=== PATIENT | female | born 1975 | race Two or more races ===

== ENCOUNTER 2019-10-13 18:22 | Emergency (ER) | payer MEDICAID ==
[~2019-10-13] VITALS: Ht 162.6 cm; Wt 60.0 kg
[2019-10-13 21:51] LABS: BASOPHILS % 1.1 % (0.0-2.0); HEMATOCRIT. 37.1 % (36.0-48.0); HEMOGLOBIN. 12.6 g/dL (12.0-16.0); LYMPHOCYTES % 44.5 % (20.0-50.0); MEAN CORPUSCULAR VOLUME 88.7 fL (81.0-99.0); MONOCYTES % 4.4 % (2.0-8.0); PLATELET 319 x1000/uL (130-400); RED BLOOD CELL COUNT 4.18 mill/uL (4.2-5.4); RED CELL DISTRIBUTION WIDTH 13.7 % (11.6-14.6)
[2019-10-13 21:56] LABS: CHLORIDE 106 mEq/L (98-107)
[2019-10-13 22:38] VITALS: BP 137/84
== END 2019-10-13 22:40 | disposition home or self-care (01) ==
LOC: ER 18:22
DX: S20.211A Contusion of right front wall of thorax, initial encounter (principal); N92.0 Excessive and frequent menstruation with regular cycle; X58.XXXA Exposure to other specified factors, initial encounter; Y93.89 Activity, other specified; Y92.89 Other specified places as the place of occurrence of the external cause; Y99.8 Other external cause status
CPT/HCPCS: 36415; 71045; 80048; 81025; 85025; 99284